=== PATIENT | female | born 1935 | race Caucasian/White ===

== ENCOUNTER → 2016-09-15 | Outpatient (CLI) | payer OTHER ==
[~2016-09-15] MED LIST: ALBUTEROL SULF 2.5 MG/0.5ML(0.5%) NEB SOLN ONE; LEVO100T8 PO; METF-312 PO; OME40GT PO; RANI300C7 PO; SIMV80TA73 PO
== END | disposition home or self-care (01) ==
LOC: RT 08:28
PROVIDERS: ATTEND Internal Medicine
DX: J44.9 Chronic obstructive pulmonary disease, unspecified (principal)
CPT/HCPCS: 94060

== ENCOUNTER → 2016-12-15 | Outpatient (CLI) | payer OTHER ==
[~2016-12-15] MED LIST changes: -ALBUTEROL SULF 2.5 MG/0.5ML(0.5%) NEB SOLN ONE; -METF-312 PO; +METF-370 PO
== END | disposition home or self-care (01) ==
LOC: XYW 09:38
PROVIDERS: ATTEND Internal Medicine
DX: I08.0 Rheumatic disorders of both mitral and aortic valves (principal); R06.00 Dyspnea, unspecified
CPT/HCPCS: 93306

== ENCOUNTER → 2016-12-24 | Outpatient (CLI) | payer OTHER ==
[2016-12-24 08:01] LABS: Aspartate Aminotransferase 18 U/L (15-37); Cholesterol 144 mg/dL (< 200); HDL Cholesterol 80 mg/dL (40-59); LDL Cholesterol 61 mg/dL (< 100); Triglycerides 55 mg/dL (< 150)
== END | disposition home or self-care (01) ==
LOC: LAB 06:55
PROVIDERS: ATTEND Internal Medicine
DX: E11.9 Type 2 diabetes mellitus without complications (principal); E03.9 Hypothyroidism, unspecified
CPT/HCPCS: 36415; 80061; 83036; 84450; 84460

== ENCOUNTER → 2016-12-28 | Outpatient (CLI) | payer OTHER | END | disposition home or self-care (01) | LOC: LAB 09:00 | PROVIDERS: ATTEND Physician Assistant | DX: D23.71 Other benign neoplasm of skin of right lower limb, including hip (principal) ==

== ENCOUNTER → 2017-10-19 | Outpatient (CLI) | payer OTHER ==
[2017-10-19 08:38] LABS: Basophils # (auto) 0.1 uL; Basophils % (auto) 1.2 % (0.0-2.0); Eosinophils # (auto) 0.2 uL; Eosinophils % (auto) 3.7 % (0.0-7.0); Hematocrit 35.5 % (36.0-46.0); Hemoglobin 11.7 g/dL (12.2-16.2); Lymphocytes # (auto) 1.3 uL; Lymphocytes % (auto) 24.1 % (10.0-50.0); Mean Corpuscular Hemoglobin 27.1 pg (28.0-32.0); Mean Corpuscular Volume 82.2 fL (80.0-100.0); Monocytes # (auto) 0.6 uL; Monocytes % (auto) 11.5 % (0.0-12.0); Neutrophils # (auto) 3.1 uL; Neutrophils % (auto) 59.5 % (37.0-80.0); Nucleated Red Blood Cells % 0.1 %; Platelet Count (auto) 292 10^3/uL (140-450); Red Blood Cells 4.32 10^6/uL (4.0-5.20); Red Cell Distribution Width 14.2 % (11.8-14.3); White Blood Cell 5.2 10^3/uL (4.4-10.8)
[2017-10-19 09:01] LABS: Albumin 3.3 g/dL (3.4-5.0); BUN/Creatinine Ratio 17.4; Calcium 8.7 mg/dL (8.5-10.1); Potassium 3.9 mmol/L (3.5-5.1); Urine Bacteria MANY /hpf (None Seen); Urine Blood 1+ /uL (Negative); Urine Specific Gravity 1.016 (1.001-1.035); Urine WBC 65 /hpf (0 - 5); Urine WBC Clumps PRESENT /hpf (None Seen)
[2017-10-19 09:05] LABS: Bilirubin, Total 0.4 mg/dL (0.2-1.0); Total Protein 6.9 g/dL (6.4-8.2)
[2017-10-19 09:10] LABS: Free T4 (Free Thyroxine) 1.5 ng/dL (0.89-1.76)
== END | disposition home or self-care (01) ==
LOC: LAB 08:18
PROVIDERS: ATTEND Internal Medicine Cardiovascular Disease
DX: E11.21 Type 2 diabetes mellitus with diabetic nephropathy (principal); E03.9 Hypothyroidism, unspecified; E11.22 Type 2 diabetes mellitus with diabetic chronic kidney disease; I12.9 Hypertensive chronic kidney disease with stage 1 through stage 4 chronic kidney disease, or unspecified chronic kidney disease; N18.3 Chronic kidney disease, stage 3 (moderate); J44.9 Chronic obstructive pulmonary disease, unspecified; E78.00 Pure hypercholesterolemia, unspecified
CPT/HCPCS: 36415; 80053; 81001; 82043; 82607; 83036; 84439; 84443; 85025

== ENCOUNTER → 2017-11-09 | Outpatient (CLI) | payer OTHER | END | disposition home or self-care (01) | LOC: XYW 08:29 | PROVIDERS: ATTEND Internal Medicine Cardiovascular Disease | DX: R07.89 Other chest pain (principal); I12.9 Hypertensive chronic kidney disease with stage 1 through stage 4 chronic kidney disease, or unspecified chronic kidney disease; E11.22 Type 2 diabetes mellitus with diabetic chronic kidney disease; N18.3 Chronic kidney disease, stage 3 (moderate); J44.9 Chronic obstructive pulmonary disease, unspecified; E03.9 Hypothyroidism, unspecified; E78.00 Pure hypercholesterolemia, unspecified | CPT/HCPCS: 93306 ==

== ENCOUNTER → 2017-11-16 | Outpatient (CLI) | payer OTHER ==
[2017-11-16 11:38] VITALS: BP 172/72
== END | disposition home or self-care (01) ==
LOC: XY 09:35
PROVIDERS: ATTEND Internal Medicine
DX: R07.89 Other chest pain (principal); I12.9 Hypertensive chronic kidney disease with stage 1 through stage 4 chronic kidney disease, or unspecified chronic kidney disease; E11.22 Type 2 diabetes mellitus with diabetic chronic kidney disease; N18.3 Chronic kidney disease, stage 3 (moderate); E03.9 Hypothyroidism, unspecified; E78.00 Pure hypercholesterolemia, unspecified; J44.9 Chronic obstructive pulmonary disease, unspecified
CPT/HCPCS: 93017

== ENCOUNTER → 2017-11-25 | Outpatient (CLI) | payer OTHER | END | disposition home or self-care (01) | LOC: LAB 09:16 | PROVIDERS: ATTEND Internal Medicine | DX: J44.9 Chronic obstructive pulmonary disease, unspecified (principal); E11.22 Type 2 diabetes mellitus with diabetic chronic kidney disease; I12.9 Hypertensive chronic kidney disease with stage 1 through stage 4 chronic kidney disease, or unspecified chronic kidney disease; N18.3 Chronic kidney disease, stage 3 (moderate); E03.9 Hypothyroidism, unspecified; D63.1 Anemia in chronic kidney disease | CPT/HCPCS: 82270 ==

== ENCOUNTER → 2017-11-30 | Outpatient (CLI) | payer OTHER ==
[2017-11-30 15:05] LABS: Basophils # (auto) 0.1 uL; Eosinophils # (auto) 0.2 uL; Nucleated Red Blood Cells % 0.1 %; Red Cell Distribution Width 14.2 % (11.8-14.3)
[2017-11-30 15:07] LABS: Basophils % (auto) 1.3 % (0.0-2.0); Eosinophils % (auto) 2.5 % (0.0-7.0); Hematocrit 37.7 % (36.0-46.0); Hemoglobin 12.4 g/dL (12.2-16.2); Lymphocytes # (auto) 2.3 uL; Lymphocytes % (auto) 25.3 % (10.0-50.0); Mean Corpuscular Hemoglobin 27.1 pg (28.0-32.0); Mean Corpuscular Hgb Conc. 32.9 g/dL (32.0-36.0); Mean Corpuscular Volume 82.6 fL (80.0-100.0); Monocytes # (auto) 0.9 uL; Monocytes % (auto) 9.9 % (0.0-12.0); Neutrophils # (auto) 5.6 uL; Platelet Count (auto) 375 10^3/uL (140-450); Red Blood Cells 4.56 10^6/uL (4.0-5.20); White Blood Cell 9.1 10^3/uL (4.4-10.8)
== END | disposition home or self-care (01) ==
LOC: LAB 14:32
PROVIDERS: ATTEND Internal Medicine
DX: I12.9 Hypertensive chronic kidney disease with stage 1 through stage 4 chronic kidney disease, or unspecified chronic kidney disease (principal); E11.22 Type 2 diabetes mellitus with diabetic chronic kidney disease; E11.21 Type 2 diabetes mellitus with diabetic nephropathy; N18.3 Chronic kidney disease, stage 3 (moderate); E78.00 Pure hypercholesterolemia, unspecified; E03.9 Hypothyroidism, unspecified; J44.9 Chronic obstructive pulmonary disease, unspecified; D63.1 Anemia in chronic kidney disease
CPT/HCPCS: 36415; 83540; 85025

== ENCOUNTER → 2018-07-08 | Outpatient (CLI) | payer OTHER ==
[2018-07-08 08:34] LABS: Basophils # (auto) 0.1 uL; Eosinophils # (auto) 0.3 uL; Eosinophils % (auto) 3.3 % (0.0-7.0); Hematocrit 42.9 % (36.0-46.0); Hemoglobin 13.9 g/dL (12.2-16.2); Lymphocytes # (auto) 1.1 uL; Lymphocytes % (auto) 11.8 % (10.0-50.0); Mean Corpuscular Hemoglobin 28.4 pg (28.0-32.0); Mean Corpuscular Hgb Conc. 32.4 g/dL (32.0-36.0); Mean Corpuscular Volume 87.5 fL (80.0-100.0); Monocytes # (auto) 0.8 uL; Monocytes % (auto) 8.4 % (0.0-12.0); Neutrophils % (auto) 75.5 % (37.0-80.0); Platelet Count (auto) 376 10^3/uL (140-450); White Blood Cell 9.2 10^3/uL (4.4-10.8)
[2018-07-08 09:17] LABS: Albumin 3.5 g/dL (3.4-5.0); Anion Gap 7 (5-15); Blood Urea Nitrogen 18 mg/dL (7-18); Calcium 9.1 mg/dL (8.5-10.1); Carbon Dioxide 26 mmol/L (21-32); Chloride 105 mmol/L (98-107); Glucose 157 mg/dL (74-106); Potassium 3.9 mmol/L (3.5-5.1); Sodium 138 mmol/L (136-145)
[2018-07-08 09:22] LABS: Alanine Aminotransferase 16 U/L (13-56); Alkaline Phosphatase 96 U/L (45-117); Aspartate Aminotransferase 16 U/L (15-37); BUN/Creatinine Ratio 17.5; Bilirubin, Total 0.6 mg/dL (0.2-1.0); Cholesterol 149 mg/dL (< 200); GFR Non-African American 55 mL/min; HDL Cholesterol 69 mg/dL (40-59); LDL Cholesterol 95 mg/dL (< 100); Total Protein 7.8 g/dL (6.4-8.2); Triglycerides 77 mg/dL (< 150)
[2018-07-08 09:23] LABS: GFR African American > 60 mL/min
== END | disposition home or self-care (01) ==
LOC: LAB 08:00
PROVIDERS: ATTEND Internal Medicine
DX: E11.9 Type 2 diabetes mellitus without complications (principal); E78.5 Hyperlipidemia, unspecified
CPT/HCPCS: 36415; 80053; 80061; 83036; 83540; 85025

== ENCOUNTER → 2018-11-22 | Outpatient (CLI) | payer OTHER ==
[2018-11-22 12:33] LABS: Basophils # (auto) 0 uL; Basophils % (auto) 0.4 % (0.0-2.0); Eosinophils # (auto) 0.3 uL; Eosinophils % (auto) 2.9 % (0.0-7.0); Hematocrit 37.9 % (36.0-46.0); Hemoglobin 12.4 g/dL (12.2-16.2); Lymphocytes # (auto) 1.5 uL; Lymphocytes % (auto) 15.6 % (10.0-50.0); Mean Corpuscular Hemoglobin 27.4 pg (28.0-32.0); Mean Corpuscular Hgb Conc. 32.7 g/dL (32.0-36.0); Mean Corpuscular Volume 83.9 fL (80.0-100.0); Neutrophils # (auto) 6.9 uL; Neutrophils % (auto) 71.1 % (37.0-80.0); Nucleated Red Blood Cells % 0.1 %; Platelet Count (auto) 391 10^3/uL (140-450); Red Blood Cells 4.51 10^6/uL (4.0-5.20); Red Cell Distribution Width 13.8 % (11.8-14.3); White Blood Cell 9.7 10^3/uL (4.4-10.8)
[2018-11-22 13:01] LABS: Potassium 4.3 mmol/L (3.5-5.1)
[2018-11-22 13:10] LABS: Albumin 3.4 g/dL (3.4-5.0); BUN/Creatinine Ratio 22.3; Bilirubin, Total 0.3 mg/dL (0.2-1.0); Calcium 9.2 mg/dL (8.5-10.1); Total Protein 7.5 g/dL (6.4-8.2)
== END | disposition home or self-care (01) ==
LOC: LAB 11:53
PROVIDERS: ATTEND Internal Medicine
DX: E11.22 Type 2 diabetes mellitus with diabetic chronic kidney disease (principal); N18.3 Chronic kidney disease, stage 3 (moderate)
CPT/HCPCS: 36415; 80053; 83036; 84439; 84443; 85025

== ENCOUNTER → 2019-07-14 | Outpatient (CLI) | payer OTHER ==
[2019-07-14 09:08] LABS: Basophils # (auto) 0.1 uL; Eosinophils # (auto) 0.3 uL; Hemoglobin 11.6 g/dL (12.2-16.2); Monocytes # (auto) 0.8 uL; Neutrophils # (auto) 6.9 uL; Red Cell Distribution Width 15.6 % (11.8-14.3)
[2019-07-14 09:13] LABS: Eosinophils % (auto) 3.1 % (0.0-7.0); Hematocrit 35.9 % (36.0-46.0); Lymphocytes # (auto) 1.2 uL; Lymphocytes % (auto) 13.3 % (10.0-50.0); Mean Corpuscular Hemoglobin 25.4 pg (28.0-32.0); Mean Corpuscular Hgb Conc. 32.4 g/dL (32.0-36.0); Mean Corpuscular Volume 78.4 fL (80.0-100.0); Monocytes % (auto) 8.5 % (0.0-12.0); Neutrophils % (auto) 74.1 % (37.0-80.0); Platelet Count (auto) 418 10^3/uL (140-450); Red Blood Cells 4.58 10^6/uL (4.0-5.20); White Blood Cell 9.3 10^3/uL (4.4-10.8)
[2019-07-14 09:19] LABS: Urine Bacteria MOD /hpf (None Seen); Urine Blood Negative /uL (Negative); Urine Mucus FEW (None Seen); Urine Specific Gravity 1.021 (1.001-1.035); Urine WBC 87 /hpf (0 - 5)
[2019-07-14 09:51] LABS: Free T4 (Free Thyroxine) 1.22 ng/dL (0.89-1.76)
[2019-07-14 09:57] LABS: Potassium 4.3 mmol/L (3.5-5.1)
[2019-07-14 10:07] LABS: Albumin 3.2 g/dL (3.4-5.0); BUN/Creatinine Ratio 18.3; Bilirubin, Total 0.4 mg/dL (0.2-1.0); Calcium 9.4 mg/dL (8.5-10.1); Total Protein 7.6 g/dL (6.4-8.2)
== END | disposition home or self-care (01) ==
LOC: LAB 08:46
PROVIDERS: ATTEND Internal Medicine
DX: E11.21 Type 2 diabetes mellitus with diabetic nephropathy (principal); E03.9 Hypothyroidism, unspecified
CPT/HCPCS: 36415; 80053; 80061; 81001; 82043; 82607; 83036; 84439; 84443; 85025; 85652

== ENCOUNTER → 2019-07-24 | Outpatient (CLI) | payer OTHER | END | disposition home or self-care (01) | LOC: LAB 11:39 | PROVIDERS: ATTEND Internal Medicine | DX: D64.9 Anemia, unspecified (principal) | CPT/HCPCS: 82270 ==

== ENCOUNTER → 2019-11-21 | Outpatient (CLI) | payer OTHER ==
[2019-11-21 15:52] LABS: Basophils # (auto) 0 10 ^3/uL (0-0.2); Eosinophils # (auto) 0.5 10 ^3/uL (0-0.8); Lymphocytes # (auto) 1.6 10 ^3/uL (0.4-5.4); Mean Corpuscular Hgb Conc. 30.9 g/dL (32.0-36.0)
[2019-11-21 15:54] LABS: Basophils % (auto) 0.2 % (0.0-2.0); Eosinophils % (auto) 4.1 % (0.0-7.0); Hematocrit 33.3 % (36.0-46.0); Hemoglobin 10.3 g/dL (12.2-16.2); Lymphocytes % (auto) 12.4 % (10.0-50.0); Mean Corpuscular Hemoglobin 22.1 pg (28.0-32.0); Mean Corpuscular Volume 71.5 fL (80.0-100.0); Monocytes % (auto) 7.3 % (0.0-12.0); Neutrophils # (auto) 10.1 10 ^3/uL (1.6-8.6); Nucleated Red Blood Cells % 0.1 %; Platelet Count (auto) 569 10^3/uL (140-450); Red Blood Cells 4.65 10^6/uL (4.0-5.20); Red Cell Distribution Width 16.5 % (11.8-14.3); Urine Bacteria MANY /hpf (None Seen); Urine Blood Negative /uL (Negative); Urine Mucus FEW (None Seen); Urine Specific Gravity 1.018 (1.001-1.035); Urine WBC 43 /hpf (0 - 5); White Blood Cell 13.2 10^3/uL (4.4-10.8)
[2019-11-21 16:07] LABS: Albumin 3.1 g/dL (3.4-5.0); BUN/Creatinine Ratio 20.5; Calcium 9.3 mg/dL (8.5-10.1); Potassium 4.2 mmol/L (3.5-5.1)
[2019-11-21 16:10] LABS: Bilirubin, Total 0.3 mg/dL (0.2-1.0); Total Protein 7.9 g/dL (6.4-8.2)
== END | disposition home or self-care (01) ==
LOC: LAB 15:22
PROVIDERS: ATTEND Internal Medicine
DX: R06.00 Dyspnea, unspecified (principal)
CPT/HCPCS: 36415; 80053; 81001; 83880; 84439; 84443; 85025; 85379; 85652

== ENCOUNTER → 2019-11-24 | Outpatient (CLI) | payer OTHER ==
[2019-11-24 12:05] LABS: Basophils # (auto) 0.1 10 ^3/uL (0-0.2); Eosinophils # (auto) 0.4 10 ^3/uL (0-0.8); Lymphocytes # (auto) 1.1 10 ^3/uL (0.4-5.4); Red Cell Distribution Width 16.7 % (11.8-14.3)
[2019-11-24 12:09] LABS: Basophils % (auto) 0.6 % (0.0-2.0); Eosinophils % (auto) 3.6 % (0.0-7.0); Hematocrit 33.8 % (36.0-46.0); Hemoglobin 10.7 g/dL (12.2-16.2); Lymphocytes % (auto) 10.3 % (10.0-50.0); Mean Corpuscular Hemoglobin 22.6 pg (28.0-32.0); Mean Corpuscular Hgb Conc. 31.5 g/dL (32.0-36.0); Mean Corpuscular Volume 71.6 fL (80.0-100.0); Monocytes % (auto) 9.3 % (0.0-12.0); Neutrophils # (auto) 8.3 10 ^3/uL (1.6-8.6); Neutrophils % (auto) 76.2 % (37.0-80.0); Platelet Count (auto) 569 10^3/uL (140-450); Red Blood Cells 4.72 10^6/uL (4.0-5.20); White Blood Cell 10.9 10^3/uL (4.4-10.8)
== END | disposition home or self-care (01) ==
LOC: LAB 11:47
PROVIDERS: ATTEND Internal Medicine
DX: D64.9 Anemia, unspecified (principal); N39.0 Urinary tract infection, site not specified
CPT/HCPCS: 36415; 82607; 83540; 83615; 85025

== ENCOUNTER → 2020-01-04 | Outpatient (CLI) | payer OTHER ==
[2020-01-04 13:30] LABS: Basophils # (auto) 0.1 10 ^3/uL (0-0.2); Eosinophils # (auto) 0.2 10 ^3/uL (0-0.8); Eosinophils % (auto) 2.6 % (0.0-7.0); Lymphocytes # (auto) 1.2 10 ^3/uL (0.4-5.4); Monocytes # (auto) 0.8 10 ^3/uL (0-1.3)
[2020-01-04 13:32] LABS: Basophils % (auto) 0.8 % (0.0-2.0); Hematocrit 33.5 % (36.0-46.0); Hemoglobin 10.3 g/dL (12.2-16.2); Lymphocytes % (auto) 13.5 % (10.0-50.0); Mean Corpuscular Hemoglobin 22.1 pg (28.0-32.0); Mean Corpuscular Hgb Conc. 30.8 g/dL (32.0-36.0); Mean Corpuscular Volume 71.7 fL (80.0-100.0); Monocytes % (auto) 9.5 % (0.0-12.0); Neutrophils # (auto) 6.5 10 ^3/uL (1.6-8.6); Neutrophils % (auto) 73.6 % (37.0-80.0); Platelet Count (auto) 495 10^3/uL (140-450); Red Blood Cells 4.68 10^6/uL (4.0-5.20); Red Cell Distribution Width 19.1 % (11.8-14.3); White Blood Cell 8.9 10^3/uL (4.4-10.8)
[2020-01-04 13:33] LABS: Urine Bacteria FEW /hpf (None Seen); Urine Blood Negative /uL (Negative); Urine Specific Gravity 1.011 (1.001-1.035); Urine WBC 19 /hpf (0 - 5)
== END | disposition home or self-care (01) ==
LOC: LAB 13:06
PROVIDERS: ATTEND Internal Medicine
DX: E11.9 Type 2 diabetes mellitus without complications (principal); D64.9 Anemia, unspecified
CPT/HCPCS: 36415; 81001; 83036; 83540; 83615; 85025

== ENCOUNTER → 2020-04-05 | Day surgery (SDC) | payer OTHER ==
[2020-04-01 10:09] LABS: Basophils # (auto) 0.1 10 ^3/uL (0-0.2); Basophils % (auto) 1.4 % (0.0-2.0); Eosinophils # (auto) 0.2 10 ^3/uL (0-0.8); Eosinophils % (auto) 1.6 % (0.0-7.0); Hematocrit 34.2 % (36.0-46.0); Hemoglobin 10.7 g/dL (12.2-16.2); Lymphocytes # (auto) 1.2 10 ^3/uL (0.4-5.4); Lymphocytes % (auto) 12.8 % (10.0-50.0); Mean Corpuscular Hemoglobin 22.8 pg (28.0-32.0); Mean Corpuscular Hgb Conc. 31.3 g/dL (32.0-36.0); Mean Corpuscular Volume 72.8 fL (80.0-100.0); Monocytes # (auto) 0.8 10 ^3/uL (0-1.3); Monocytes % (auto) 7.8 % (0.0-12.0); Neutrophils # (auto) 7.4 10 ^3/uL (1.6-8.6); Neutrophils % (auto) 76.4 % (37.0-80.0); Nucleated Red Blood Cells % 0.1 %; Platelet Count (auto) 454 10^3/uL (140-450); Red Cell Distribution Width 18.2 % (11.8-14.3); White Blood Cell 9.7 10^3/uL (4.4-10.8)
[2020-04-01 10:12] LABS: INR 1.14 (0.9-1.15); Partial Thromboplastin Time 33.5 sec (23.0-31.2)
[~2020-04-05] VITALS: Ht 172.7 cm; Wt 61.7 kg
[~2020-04-05] MED LIST changes: -LEVO100T8 PO; +LEVO75TA6 PO; +LIDOCAINE VISCOUS 2% 15ML UD ONE; -RANI300C7 PO; -SIMV80TA73 PO; +SODIUM CHLORIDE LOCK 10 ML ONE; +diphenhdrAMINE HCL 50 MG/1 ML VL ONE
[2020-04-05] MEDS: fentaNYL CITRATE 100 MCG/2 ML VL ONE ×4 (12:35→12:45)
[2020-04-05] MEDS: MIDAZOLAM HCL 5 MG/ML-1ML VIAL ONE ×3 (12:35→12:40)
[2020-04-05 14:00] VITALS: BP 149/77
== END | disposition home or self-care (01) ==
LOC: GI 10:51
PROVIDERS: ATTEND Internal Medicine Gastroenterology
DX: D64.9 Anemia, unspecified (principal); K29.50 Unspecified chronic gastritis without bleeding; K44.9 Diaphragmatic hernia without obstruction or gangrene; K31.7 Polyp of stomach and duodenum; J44.9 Chronic obstructive pulmonary disease, unspecified; E78.00 Pure hypercholesterolemia, unspecified; E11.9 Type 2 diabetes mellitus without complications; F17.200 Nicotine dependence, unspecified, uncomplicated; Z88.1 Allergy status to other antibiotic agents; N83.209 Unspecified ovarian cyst, unspecified side; Z90.49 Acquired absence of other specified parts of digestive tract; Z20.828 Contact with and (suspected) exposure to other viral communicable diseases; Z79.899 Other long term (current) drug therapy; Z98.890 Other specified postprocedural states
CPT/HCPCS: 36415; 43239; 43251; 82962; 85025; 85610; 85730; 88305; 88342; J2250; J3010; J7030; U0003; 99152

== ENCOUNTER → 2020-04-19 | Day surgery (SDC) | payer OTHER ==
[2020-04-15 11:54] LABS: Basophils # (auto) 0.1 10 ^3/uL (0-0.2); Eosinophils # (auto) 0.2 10 ^3/uL (0-0.8); Hemoglobin 10.8 g/dL (12.2-16.2)
[2020-04-15 11:56] LABS: Basophils % (auto) 0.7 % (0.0-2.0); Eosinophils % (auto) 1.9 % (0.0-7.0); Hematocrit 34.3 % (36.0-46.0); Lymphocytes # (auto) 1.3 10 ^3/uL (0.4-5.4); Lymphocytes % (auto) 13.3 % (10.0-50.0); Mean Corpuscular Hemoglobin 22.9 pg (28.0-32.0); Mean Corpuscular Hgb Conc. 31.4 g/dL (32.0-36.0); Mean Corpuscular Volume 72.8 fL (80.0-100.0); Monocytes # (auto) 0.9 10 ^3/uL (0-1.3); Neutrophils # (auto) 7.6 10 ^3/uL (1.6-8.6); Neutrophils % (auto) 75.1 % (37.0-80.0); Nucleated Red Blood Cells % 0.1 %; Platelet Count (auto) 494 10^3/uL (140-450); Red Blood Cells 4.71 10^6/uL (4.0-5.20); Red Cell Distribution Width 18.2 % (11.8-14.3); White Blood Cell 10.1 10^3/uL (4.4-10.8)
[2020-04-15 12:07] LABS: INR 1.14 (0.9-1.15); Partial Thromboplastin Time 33.5 sec (23.0-31.2)
[~2020-04-19] VITALS: Ht 172.7 cm; Wt 61.7 kg
[~2020-04-19] MED LIST changes: +ATOR20TA50 PO; -LIDOCAINE VISCOUS 2% 15ML UD ONE; -OME40GT PO; +OMEP20TA PO
[2020-04-19] MEDS: MIDAZOLAM HCL 5 MG/ML-1ML VIAL ONE ×3 (12:57→13:05)
[2020-04-19] MEDS: fentaNYL CITRATE 100 MCG/2 ML VL ONE ×3 (12:57→13:04)
[2020-04-19 13:55] VITALS: BP 142/76
== END | disposition home or self-care (01) ==
LOC: GI 11:52
PROVIDERS: ATTEND Internal Medicine Gastroenterology
DX: D64.9 Anemia, unspecified (principal); C18.3 Malignant neoplasm of hepatic flexure; D12.7 Benign neoplasm of rectosigmoid junction; K57.30 Diverticulosis of large intestine without perforation or abscess without bleeding; K64.8 Other hemorrhoids; Z90.49 Acquired absence of other specified parts of digestive tract; E78.00 Pure hypercholesterolemia, unspecified; E11.9 Type 2 diabetes mellitus without complications; J44.9 Chronic obstructive pulmonary disease, unspecified; E11.36 Type 2 diabetes mellitus with diabetic cataract; Z88.1 Allergy status to other antibiotic agents; N83.292 Other ovarian cyst, left side; Z98.890 Other specified postprocedural states; Z20.828 Contact with and (suspected) exposure to other viral communicable diseases; Z79.899 Other long term (current) drug therapy; Z87.891 Personal history of nicotine dependence
CPT/HCPCS: 36415; 45380; 45385; 82962; 85025; 85610; 85730; 88305; J1200; J2250; J3010; J7030; U0003; 99152

== ENCOUNTER → 2020-05-07 | Outpatient (CLI) | payer OTHER ==
[~2020-05-07] MED LIST changes: -SODIUM CHLORIDE LOCK 10 ML ONE; -diphenhdrAMINE HCL 50 MG/1 ML VL ONE
== END | disposition home or self-care (01) ==
LOC: LAB 12:17
PROVIDERS: ATTEND Internal Medicine
DX: C18.9 Malignant neoplasm of colon, unspecified (principal)
CPT/HCPCS: 36415; 82565; 84520

== ENCOUNTER 2020-05-22 06:23 | Inpatient (IN) | payer OTHER ==
[2020-05-20 16:29] LABS: Urine Bacteria MOD /hpf (None Seen); Urine Blood TRACE /uL (Negative); Urine Mucus FEW (None Seen); Urine Specific Gravity 1.019 (1.001-1.035); Urine WBC 90 /hpf (0 - 5)
[2020-05-20 16:36] LABS: INR 1.17 (0.9-1.15); Partial Thromboplastin Time 35.3 sec (23.0-31.2)
[2020-05-20 16:38] LABS: Albumin 3.6 g/dL (3.4-5.0); BUN/Creatinine Ratio 11.5; Potassium 3.6 mmol/L (3.5-5.1)
[2020-05-20 16:41] LABS: Bilirubin, Total 0.5 mg/dL (0.2-1.0); Total Protein 8.3 g/dL (6.4-8.2)
[2020-05-20 16:45] LABS: Basophils # (auto) 0.1 10 ^3/uL (0-0.2); Eosinophils # (auto) 0.2 10 ^3/uL (0-0.8); Eosinophils % (auto) 2.1 % (0.0-7.0); Hematocrit 36.6 % (36.0-46.0); Hemoglobin 11.4 g/dL (12.2-16.2); Lymphocytes # (auto) 1.6 10 ^3/uL (0.4-5.4); Lymphocytes % (auto) 15.8 % (10.0-50.0); Mean Corpuscular Hemoglobin 23.3 pg (28.0-32.0); Mean Corpuscular Hgb Conc. 31.2 g/dL (32.0-36.0); Mean Corpuscular Volume 74.8 fL (80.0-100.0); Monocytes # (auto) 0.8 10 ^3/uL (0-1.3); Monocytes % (auto) 8.4 % (0.0-12.0); Neutrophils # (auto) 7.3 10 ^3/uL (1.6-8.6); Neutrophils % (auto) 72.7 % (37.0-80.0); Nucleated Red Blood Cells % 0.1 %; Platelet Count (auto) 487 10^3/uL (140-450); Red Cell Distribution Width 17.3 % (11.8-14.3); White Blood Cell 10.1 10^3/uL (4.4-10.8)
[~2020-05-22] VITALS: Ht 172.7 cm; Wt 66.1 kg
[2020-05-22] MEDS ORDERED: POVIDONE IODINE 10 % TOPICAL OINT 30GM TOP ONE (06:52)
[2020-05-22] MEDS ORDERED: LIDOCAINE 1% HCL (LOCAL ANESTH.) INJ 20ML MDV ONE (07:11)
[2020-05-22] MEDS ORDERED: ROCURONIUM 10MG/ML 10ML VIAL IV ONE ×2 (07:11→07:19)
[2020-05-22] MEDS ORDERED: SUCCINYLCHOLINE CHLORIDE 20 MG/ML 10ML VIAL IV ONE (07:11)
[2020-05-22] MEDS ORDERED: ONDANSETRON HCL 4 MG/2 ML VIAL ONE (07:19)
[2020-05-22] MEDS ORDERED: fentaNYL CITRATE 5 ML ONE (07:19)
[2020-05-22] MEDS ORDERED: HYDROmorphone HCL 2 MG/ML VL ONE (07:19)
[2020-05-22] MEDS ORDERED: MIDAZOLAM HCL 1MG/1ML-2 ML VIAL ONE (07:19)
[2020-05-22] MEDS ORDERED: fentaNYL CITRATE 100 MCG/2 ML VL ONE (07:19)
[2020-05-22] MEDS ORDERED: ETOMIDATE (2MG/ML) 20ML VIAL IV ONE (07:19)
[2020-05-22] MEDS ORDERED: SODIUM CHLORIDE LOCK 10 ML ONE (07:19)
[2020-05-22] MEDS ORDERED: cefTRIAXone SOD 1,000 MG VL ONE (07:22)
[2020-05-22] MEDS ORDERED: HYDROmorphone HCL 2 MG/ML VL IV PRN ×3 (07:45→13:45)
[2020-05-22] MEDS ORDERED: ACCU-CHEK COMFORT CURVE STRIP VI ONE (07:45)
[2020-05-22] MEDS ORDERED: MORPHINE SULFATE 4 MG/ML SYR/VIAL IV PRN (07:45)
[2020-05-22] MEDS ORDERED: ONDANSETRON HCL 4 MG/2 ML VIAL IV PRN (07:45)
[2020-05-22] MEDS ORDERED: GLYCOPYRROLATE 0.2 MG/ML 1ML VIAL ONE (08:43)
[2020-05-22] MEDS ORDERED: NEOSTIGMINE 1 MG/ML INJ (10mg/10ML VIAL) ONE (08:43)
[2020-05-22] MEDS ORDERED: MORPHINE SULFATE 4 MG/ML SYR/VIAL IV ONE (10:30)
[2020-05-22] MEDS ORDERED: ONDANSETRON HCL 4 MG/2 ML VIAL IV ONE (10:30)
[2020-05-22] MEDS ORDERED: D5W/SOD CHL 0.45%/KCL 20MEQ 1,000 ML IV SCH (11:00)
--- NOTE | 2020-05-22 11:12 | NUR ---
Report received from Harrison HAQUE in OR. Will await patient arrival.
--- NOTE | 2020-05-22 11:28 | NUR ---
Telemetry admit from [facility] admitted to Telemetry unit after SBAR received. She is A & O x4, no s/s of distress, patient does have some belly pain stating 12/28, patient still very drowsy at this time, will medicate per orders. Patient oriented to Anca Chavez, primary RN, unit, room, bed, and unit policies regarding patient care and visiting hours. Patient on room air, weighed by bedscale and encouraged to call if they need something. All questions and concerns addressed, patient verbalized understanding. SUSAN drain draining sanguinous blood from the right lower quadrant, 25 ml out at this time, scanlon catheter draining yellow urine, NG tube placed to LCS as ordered. POC discussed, will continue to monitor Q1h and PRN, bed alarm on, bed in lowest, locked position, call light within reach. Addendum: 05/22/20 at 1610 by Anca Chavez RN Midline abdominal dressing is clean, dry and intact.
--- NOTE | 2020-05-22 12:30 | NUR ---
Patient placed on tele box 66 NSR at 83, will continue to monitor.
[2020-05-22 12:36] VITALS: BP 135/59
[2020-05-22 13:02] VITALS: BP 135/59
[2020-05-22] MEDS ORDERED: cefTRIAXone 1GM/50ML D5W 50 ML IV ONE (13:45)
[2020-05-22] MEDS: D5W/SOD CHL 0.45%/KCL 20MEQ 1,000 ML IV SCH (13:45)
[2020-05-22] MEDS ORDERED: DEXTROSE (50%) 50ML SYRG IV PRN (13:45)
[2020-05-22] MEDS ORDERED: FAMOTIDINE (10MG/ML) 2ML VL IV ONE (13:45)
[2020-05-22] MEDS: ONDANSETRON HCL 4 MG/2 ML VIAL IV PRN (15:27)
[2020-05-22 16:36] VITALS: BP 146/66
[2020-05-22] MEDS: InsuLIN REG 1unit/0.01ml Soln (100units/ml) SC SCH (18:00)
--- NOTE | 2020-05-22 18:00 | NUR ---
SUSAN drain 50 ml sanguinous fluid output for shift.
[2020-05-22] MEDS: ACCU-CHEK COMFORT CURVE STRIP VI SCH (18:01)
[2020-05-22 21:36] VITALS: BP 156/73
[2020-05-23] MEDS: InsuLIN REG 1unit/0.01ml Soln (100units/ml) SC SCH ×4 (00:13→17:19)
[2020-05-23] MEDS: ACCU-CHEK COMFORT CURVE STRIP VI SCH ×4 (00:13→17:18)
[2020-05-23] MEDS: D5W/SOD CHL 0.45%/KCL 20MEQ 1,000 ML IV SCH ×4 (02:25→21:25)
[2020-05-23] MEDS: ONDANSETRON HCL 4 MG/2 ML VIAL IV PRN (02:25)
--- NOTE | 2020-05-23 03:00 | NUR ---
PT TURNED Q2 DURING NOC SHIFT. TOLERATED WELL. WANTS NGTUBE OUT. CALL LIGHT IN REACH.
[2020-05-23 05:00] VITALS: BP 137/68
[2020-05-23 05:57] LABS: Basophils # (auto) 0.1 10 ^3/uL (0-0.2); Eosinophils # (auto) 0 10 ^3/uL (0-0.8)
[2020-05-23 06:01] LABS: Basophils % (auto) 0.3 % (0.0-2.0); Hematocrit 32.8 % (36.0-46.0); Lymphocytes # (auto) 1.1 10 ^3/uL (0.4-5.4); Mean Corpuscular Hemoglobin 22.9 pg (28.0-32.0); Mean Corpuscular Hgb Conc. 30.5 g/dL (32.0-36.0); Mean Corpuscular Volume 74.9 fL (80.0-100.0); Monocytes # (auto) 1.6 10 ^3/uL (0-1.3); Monocytes % (auto) 7.6 % (0.0-12.0); Neutrophils # (auto) 18.5 10 ^3/uL (1.6-8.6); Neutrophils % (auto) 87.1 % (37.0-80.0); Platelet Count (auto) 434 10^3/uL (140-450); Red Blood Cells 4.38 10^6/uL (4.0-5.20); Red Cell Distribution Width 17.4 % (11.8-14.3); White Blood Cell 21.2 10^3/uL (4.4-10.8)
[2020-05-23 06:23] LABS: Potassium 3.5 mmol/L (3.5-5.1)
[2020-05-23 06:38] LABS: Albumin 2.8 g/dL (3.4-5.0); BUN/Creatinine Ratio 9.7; Bilirubin, Total 0.3 mg/dL (0.2-1.0); Calcium 8.7 mg/dL (8.5-10.1); Total Protein 6.6 g/dL (6.4-8.2)
[2020-05-23 08:00] VITALS: BP 141/64
[2020-05-23] MEDS: cefTRIAXone 1GM/50ML D5W 50 ML IV SCH (08:43)
[2020-05-23] MEDS: FAMOTIDINE (10MG/ML) 2ML VL IV SCH (08:44)
[2020-05-23 09:00] VITALS: BP 141/64
[2020-05-23 13:00] VITALS: BP 150/75
--- NOTE | 2020-05-23 16:00 | NUR ---
Patient requested that P.T. evaluation be done tomorrow.
[2020-05-23 16:34] VITALS: BP 153/78
[2020-05-23 22:00] VITALS: BP_SYST 154; BP_SYST 157; BP_DIAS 77; BP_DIAS 82
[2020-05-24] MEDS: ACCU-CHEK COMFORT CURVE STRIP VI SCH ×4 (00:16→18:16)
[2020-05-24] MEDS: ONDANSETRON HCL 4 MG/2 ML VIAL IV PRN (04:16)
[2020-05-24 05:00] VITALS: BP 156/90
[2020-05-24] MEDS: InsuLIN REG 1unit/0.01ml Soln (100units/ml) SC SCH ×4 (05:55→18:00)
--- NOTE | 2020-05-24 05:59 | NUR ---
150 output from mehul 100 output from ng tube for entire shift. patient has been turned/repositioned q2 hours or prn throughout entire shift.
[2020-05-24 07:14] LABS: Eosinophils # (auto) 0 10 ^3/uL (0-0.8); Eosinophils % (auto) 0.3 % (0.0-7.0); Neutrophils # (auto) 11.9 10 ^3/uL (1.6-8.6); White Blood Cell 13.9 10^3/uL (4.4-10.8)
[2020-05-24 07:17] LABS: Basophils # (auto) 0.1 10 ^3/uL (0-0.2); Basophils % (auto) 0.7 % (0.0-2.0); Hematocrit 35.3 % (36.0-46.0); Hemoglobin 10.9 g/dL (12.2-16.2); Lymphocytes # (auto) 0.8 10 ^3/uL (0.4-5.4); Lymphocytes % (auto) 5.9 % (10.0-50.0); Mean Corpuscular Hgb Conc. 30.9 g/dL (32.0-36.0); Mean Corpuscular Volume 74.3 fL (80.0-100.0); Monocytes % (auto) 7.4 % (0.0-12.0); Neutrophils % (auto) 85.7 % (37.0-80.0); Nucleated Red Blood Cells % 0.1 %; Platelet Count (auto) 373 10^3/uL (140-450); Red Blood Cells 4.75 10^6/uL (4.0-5.20); Red Cell Distribution Width 18.2 % (11.8-14.3)
[2020-05-24 08:00] VITALS: BP 158/86
[2020-05-24 09:00] VITALS: BP 158/86
[2020-05-24] MEDS: FAMOTIDINE (10MG/ML) 2ML VL IV SCH (09:36)
[2020-05-24] MEDS: cefTRIAXone 1GM/50ML D5W 50 ML IV SCH (09:36)
--- NOTE | 2020-05-24 12:02 | NUR ---
Nutrition Assessment Note please see attached link for complete assessment Est energy needs BW 68 [id number] kcal (25-30 kcal/kg BW) Est protein needs: 68-81g (1.0-1.2 g/kg BW) Will monitor and reassess prn Addendum: 05/24/20 at [address] Amended: Links added.
[2020-05-24 13:00] VITALS: BP 161/86
--- NOTE | 2020-05-24 17:49 | NUR ---
Assessment Patient is a 84 year old female, who is alert and oriented. Prior to being admitted to [facility], patient could do all ADL's and ambulate independently. Patient is a diabetic. Patient is retired and receives social security as income. Patient lives alone, but her niece will stay with her post discharge. Patient states that her niece is her support system. Patient stated that she has POA but not filed at [facility]. Discharge planning: Patient will return home post discharge, patient will follow up care with PCP post discharge. Patient has all supplies for diabetic care at home. There are no other discharge needs to address at the moment.
[2020-05-24] MEDS: D5W/SOD CHL 0.45%/KCL 20MEQ 1,000 ML IV SCH (19:58)
[2020-05-24 22:00] VITALS: BP 152/80
[2020-05-25] MEDS: ACCU-CHEK COMFORT CURVE STRIP VI SCH ×4 (01:26→17:47)
[2020-05-25 05:00] VITALS: BP 143/83
[2020-05-25] MEDS: InsuLIN REG 1unit/0.01ml Soln (100units/ml) SC SCH ×4 (05:12→17:48)
--- NOTE | 2020-05-25 07:50 | NUR ---
Opening Shift Note Assumed care of patient, awake and alert bed is locked and in lowest position bed rails up x2 call light is within reach . No S/S of distress/SOB or pain. Instructed on POC and to call for assistance PRN, will continue to monitor for changes Q1hr and PRN.
[2020-05-25 08:27] LABS: Potassium 3.7 mmol/L (3.5-5.1)
[2020-05-25 08:30] VITALS: BP 150/86
[2020-05-25 08:31] LABS: BUN/Creatinine Ratio 12.9; Calcium 8.6 mg/dL (8.5-10.1)
[2020-05-25 08:45] LABS: Basophils # (auto) 0.1 10 ^3/uL (0-0.2); Basophils % (auto) 0.5 % (0.0-2.0); Eosinophils # (auto) 0.2 10 ^3/uL (0-0.8); Eosinophils % (auto) 1.6 % (0.0-7.0); Hematocrit 35.9 % (36.0-46.0); Hemoglobin 11.1 g/dL (12.2-16.2); Lymphocytes # (auto) 1.3 10 ^3/uL (0.4-5.4); Lymphocytes % (auto) 11.2 % (10.0-50.0); Mean Corpuscular Hemoglobin 23.2 pg (28.0-32.0); Mean Corpuscular Volume 74.7 fL (80.0-100.0); Monocytes # (auto) 1.2 10 ^3/uL (0-1.3); Monocytes % (auto) 9.9 % (0.0-12.0); Neutrophils % (auto) 76.8 % (37.0-80.0); Nucleated Red Blood Cells % 0.2 %; Platelet Count (auto) 448 10^3/uL (140-450); Red Blood Cells 4.81 10^6/uL (4.0-5.20); White Blood Cell 11.7 10^3/uL (4.4-10.8)
[2020-05-25] MEDS: cefTRIAXone 1GM/50ML D5W 50 ML IV SCH (09:19)
[2020-05-25] MEDS: FAMOTIDINE (10MG/ML) 2ML VL IV SCH (09:48)
[2020-05-25 12:57] VITALS: BP 145/89
[2020-05-25] MEDS: D5W/SOD CHL 0.45%/KCL 20MEQ 1,000 ML IV SCH (13:40)
[2020-05-25 16:30] VITALS: BP 153/98
--- NOTE | 2020-05-25 19:30 | NUR ---
Opening Shift Note Assumed care of patient, awake and alert x4. No S/S of distress/SOB or pain. NGT to LCS, 400 cc are in the NG cannister. Diana is in place and hung below bladder, draining yellow urine. Instructed on POC and to call for assist PRN. Call light is within reach, will continue to monitor for changes Q1hr and PRN.
[2020-05-25 22:00] VITALS: BP 155/75
--- NOTE | 2020-05-26 00:30 | NUR ---
Scanlon catheter dc'd due to leaking. Attempted to reposition and advance catheter, it was unsuccessful, scanlon is still leaking around catheter. Scanlon dc'd with clean technique following deflation of balloon. Patient tolerated well with no complaints of pain. Will attempt to place another scanlon.
--- NOTE | 2020-05-26 01:34 | NUR ---
Attempted to place a scanlon 5x by 4 RNs, unable to place. Patient has no scanlon at this time. Patient repositioned for comfort, instructed to call for assistance, call light is within reach. Addendum: 05/26/20 at 0140 by PK HATCH RN Patient is requesting to hold off on trying again, she states it is uncomfortable and she wants to rest, we can try again in the morning.
[2020-05-26 05:00] VITALS: BP 138/75
[2020-05-26] MEDS: InsuLIN REG 1unit/0.01ml Soln (100units/ml) SC SCH ×5 (05:57→23:58)
[2020-05-26] MEDS: ACCU-CHEK COMFORT CURVE STRIP VI SCH ×5 (05:57→23:57)
[2020-05-26] MEDS: D5W/SOD CHL 0.45%/KCL 20MEQ 1,000 ML IV SCH (06:41)
--- NOTE | 2020-05-26 07:03 | NUR ---
Closing note Total NG tube output 400cc of light green drainage. SUSAN drain 125cc of sanguinous fluid out. NGT remains to LCS. Call light is within reach, will endorse care to dayshift.
[2020-05-26 09:00] VITALS: BP 133/71
[2020-05-26] MEDS: cefTRIAXone 1GM/50ML D5W 50 ML IV SCH (09:11)
[2020-05-26] MEDS: FAMOTIDINE (10MG/ML) 2ML VL IV SCH (09:11)
--- NOTE | 2020-05-26 09:15 | NUR ---
BLANCO CATHETER ATTEMPTED. UNABLE TO OBTAIN PROPER CATHETER PLACEMENT. Jana WEN.
--- NOTE | 2020-05-26 10:56 | NUR ---
Contacted Dr. Radford regarding NGT removal and pt follow up. Message left
--- NOTE | 2020-05-26 12:16 | NUR ---
Nutrition Followup Note Wt 65.3kg Pt was walking around the floor with PT at time of rounds. Per MD note NGT to be d/c and pt diet to adv to clear liquid. Will monitor tolerance of diet and continuing adv of diet. Est energy needs BW 68 [id number] kcal (25-30 kcal/kg BW) Est protein needs: 68-81g (1.0-1.2 g/kg BW) Will monitor and reassess prn Labs: GLUC 138H, Alb 2.8L BM: Pt with no BM noted per Rn note Skin: BS 19 low risk, full details in child care supervisor note PES Altered nutrition related lab values r.t current chronic medical condition aeb hyperglycemia, mod hypoalb Partially resolved: Inadequate PO intake r.t current medical condition aeb pt`s nPO post sx Comments 1) advance diet as medically feasible 2) continue current plan of care Expected Outcomes/Goals: pt will get > 75% of needs pt will advance and nancy po F/u high 2-3 days
[2020-05-26 13:00] VITALS: BP 146/85
--- NOTE | 2020-05-26 13:25 | NUR ---
NGT removed after pt had small BM and pt reports passing flatus. Pt tolerated well. Provided clear liquid lunch tray.
--- NOTE | 2020-05-26 14:30 | NUR ---
Pt transferred to chair with standby assist. Pt tolerated well
[2020-05-26 16:44] VITALS: BP 146/76
--- NOTE | 2020-05-26 19:35 | NUR ---
Opening Shift Note Assumed care of patient, awake and alert x4. No S/S of distress/SOB or pain. Dressing to abdomen is C/D/I, mehul drain is in place to RLQ. Instructed on POC and to call for assist PRN. Call light is within reach, will continue to monitor for changes Q1hr and PRN.
[2020-05-26 21:00] VITALS: BP 154/85
[2020-05-27] MEDS: D5W/SOD CHL 0.45%/KCL 20MEQ 1,000 ML IV SCH (03:49)
[2020-05-27 05:00] VITALS: BP 151/70
[2020-05-27] MEDS: ACCU-CHEK COMFORT CURVE STRIP VI SCH ×3 (06:12→17:15)
[2020-05-27] MEDS: InsuLIN REG 1unit/0.01ml Soln (100units/ml) SC SCH ×3 (06:13→17:14)
--- NOTE | 2020-05-27 06:50 | NUR ---
Closing note SUSAN drain output 55cc of serosanguineous fluid. Call light is within reach, will endorse care to dayshift.
--- NOTE | 2020-05-27 07:11 | NUR ---
Closing note Report given to shift supervisor melting RN. Patient on 3L Oxymizer. No signs of distress noted.
--- NOTE | 2020-05-27 07:30 | NUR ---
Opening Shift Note Assumed care of patient, AOx4. No S/S of distress/SOB or pain. Safety measures in place, bed locked in lowest position, call light within reach. Instructed on POC and to call for assist PRN, will continue to monitor for changes Q1hr and PRN.
--- NOTE | 2020-05-27 08:45 | NUR ---
Patient ambulated to restroom Patient ambulated to restroom with front wheel walker and stand by assistance from this RN. Patient tolerated well, will continue to monitor Q1 hour and PRN.
[2020-05-27] MEDS: cefTRIAXone 1GM/50ML D5W 50 ML IV SCH (09:12)
[2020-05-27] MEDS: FAMOTIDINE (10MG/ML) 2ML VL IV SCH (09:13)
--- NOTE | 2020-05-27 09:50 | NUR ---
Doctor at bedside Dr. Maurice at bedside, updated on POC. New orders received, will carry out and continue to monitor.
--- NOTE | 2020-05-27 09:55 | NUR ---
IV Insertion IV access obtained, via clean sterile technique by inserting 24 gauge catheter to left upper forearm. IV secured properly. No trauma to site. Patient tolerated procedure well. Will continue to monitor.
--- NOTE | 2020-05-27 10:00 | NUR ---
IV Removed IV removed with sterile technique from left forearm, catheter fully intact. Pressure dressing applied to site. Patient tolerated procedure well. Will continue to monitor Q1 hour and PRN.
[2020-05-27] MEDS ORDERED: HYDROmorphone HCL 2 MG/ML VL IV PRN (10:15)
[2020-05-27] MEDS ORDERED: HYDROcodone-ACET 5/325MG TAB PO PRN (10:15)
--- NOTE | 2020-05-27 14:16 | NUR ---
Doctor at bedside Dr. Radford discussing plan of care to patient and this RN. MD states to removed abdominal dressing and leave open to air. Will implement order, will continue to monitor.
--- NOTE | 2020-05-27 15:07 | NUR ---
Dressing removed Abdominal dressing removed. Well approximated, clean, dry and intact. Left open to air. Patient denies pain to the area. Will continue to monitor.
--- NOTE | 2020-05-27 16:54 | NUR ---
RN AMBULATED PATIENT AROUND NURSING STATION EARLIER TODAY. Addendum: 05/27/20 at 1655 by JAILYN SULTANA PTT Amended: Links added.
[2020-05-27 17:00] VITALS: BP 114/67
--- NOTE | 2020-05-27 17:55 | NUR ---
Patient ambulated This RN ambulated patient around unit, with front wheel walker. Patient tolerated well. Patient assisted back to bed, call light within reach. Will continue to monitor Q1 hour and PRN.
--- NOTE | 2020-05-27 18:10 | NUR ---
SUSAN Drain 25mls of sanguinous fluid emptied from SUSAN drain.
--- NOTE | 2020-05-27 19:21 | NUR ---
Closing note Report given to light bulb replacer RN.
[2020-05-27 21:00] VITALS: BP 138/71
[2020-05-28] MEDS: ONDANSETRON HCL 4 MG/2 ML VIAL IV PRN (00:08)
[2020-05-28] MEDS: ACCU-CHEK COMFORT CURVE STRIP VI SCH ×3 (00:46→11:27)
[2020-05-28 05:00] VITALS: BP 147/68
[2020-05-28] MEDS: InsuLIN REG 1unit/0.01ml Soln (100units/ml) SC SCH ×3 (05:43→11:27)
[2020-05-28 08:00] VITALS: BP 152/76
[2020-05-28] MEDS: cefTRIAXone 1GM/50ML D5W 50 ML IV SCH (08:29)
[2020-05-28] MEDS ORDERED: FAMOTIDINE 20 MG TAB PO SCH (10:00)
--- NOTE | 2020-05-28 10:20 | NUR ---
Physical therapy Patient with physical therapy walking around the nursing station with front wheel walker. Patient tolerating well.
--- NOTE | 2020-05-28 10:30 | NUR ---
Doctor at bedside Dr. Maurice updating plan of care with patient and this RN. New orders received will carry out and continue to monitor.
[2020-05-28] MEDS ORDERED: LACTULOSE 20Gm/30ML SOLN PO ONE (10:45)
[2020-05-28] MEDS ORDERED: DOCUSATE SOD 100 MG CAP PO ONE (10:45)
[2020-05-28 12:50] VITALS: BP 152/76
--- NOTE | 2020-05-28 15:15 | NUR ---
Discharge instructions given to patient and caregiver Marsha (niece). Educated on SUSAN drain, patient returned demonstration. Encourage to follow up with PMD as instructed. All questions and concerns addressed. Patient verbalized understanding. Medication reconciliation form completed and copy given to patient. IV removed with catheter intact, pressure dressing applied. Telemetry unit returned to ICU. Patient taken to vehicle via wheelchair with all personal belongings, accompanied by staff. No distress noted at time of departure.
== END 2020-05-28 15:15 | disposition home or self-care (01) | DRG 330 ==
LOC: SUR 06:23 → TELE-WESTW 06:24
PROVIDERS: ADMIT Surgery; ATTEND Internal Medicine
PROC: 0FB13ZX Excision of Right Lobe Liver, Percutaneous Approach, Diagnostic (ICD-10-PCS; 2020-05-22)
PROC: 0DTL0ZZ Resection of Transverse Colon, Open Approach (ICD-10-PCS; principal; 2020-05-22 07:47)
DX: C18.4 Malignant neoplasm of transverse colon (principal); N39.0 Urinary tract infection, site not specified; E44.0 Moderate protein-calorie malnutrition; C78.7 Secondary malignant neoplasm of liver and intrahepatic bile duct; E03.9 Hypothyroidism, unspecified; E78.5 Hyperlipidemia, unspecified; E11.9 Type 2 diabetes mellitus without complications; R16.0 Hepatomegaly, not elsewhere classified; Z88.2 Allergy status to sulfonamides; K81.9 Cholecystitis, unspecified; Z20.828 Contact with and (suspected) exposure to other viral communicable diseases; E78.00 Pure hypercholesterolemia, unspecified; K21.9 Gastro-esophageal reflux disease without esophagitis
CPT/HCPCS: 36415; 71045; 80048; 80053; 81001; 82962; 83036; 84443; 85025; 85610; 85730; 86850; 86900; 86901; 87086; 87426; 97116; 97530; G0378; J0330; J0696; J1815; J2001; J2250; J2405; J3490

== ENCOUNTER → 2020-07-22 | Outpatient (CLI) | payer OTHER ==
[2020-07-22 10:05] LABS: Hematocrit 35.1 % (36.0-46.0); Platelet Count (auto) 364 10^3/uL (140-450); Red Blood Cells 4.58 10^6/uL (4.0-5.20); White Blood Cell 5.5 10^3/uL (4.4-10.8)
[2020-07-22 10:06] LABS: Urine Bacteria MANY /hpf (None Seen); Urine Blood Negative /uL (Negative); Urine Hyaline Cast FEW /lpf (0 - 2); Urine Mucus FEW (None Seen); Urine Specific Gravity 1.021 (1.001-1.035); Urine WBC 96 /hpf (0 - 5)
[2020-07-22 10:16] LABS: Basophils # (auto) 0.1 10 ^3/uL (0-0.2); Basophils % (auto) 1.8 % (0.0-2.0); Eosinophils # (auto) 0.3 10 ^3/uL (0-0.8); Hemoglobin 11.3 g/dL (12.2-16.2); Lymphocytes # (auto) 1.4 10 ^3/uL (0.4-5.4); Mean Corpuscular Hemoglobin 24.7 pg (28.0-32.0); Mean Corpuscular Hgb Conc. 32.3 g/dL (32.0-36.0); Mean Corpuscular Volume 76.6 fL (80.0-100.0); Monocytes # (auto) 0.5 10 ^3/uL (0-1.3); Monocytes % (auto) 8.2 % (0.0-12.0); Neutrophils # (auto) 3.3 10 ^3/uL (1.6-8.6); Red Cell Distribution Width 18.1 % (11.8-14.3)
[2020-07-22 10:31] LABS: Albumin 3.5 g/dL (3.4-5.0); BUN/Creatinine Ratio 10.4; Potassium 3.8 mmol/L (3.5-5.1)
[2020-07-22 10:33] LABS: Bilirubin, Total 0.3 mg/dL (0.2-1.0); Total Protein 7.6 g/dL (6.4-8.2)
== END | disposition home or self-care (01) ==
LOC: LAB 09:42
PROVIDERS: ATTEND Internal Medicine
DX: C18.9 Malignant neoplasm of colon, unspecified (principal); R11.0 Nausea
CPT/HCPCS: 36415; 80053; 81001; 84439; 84443; 85025

== ENCOUNTER → 2020-08-28 | Outpatient (CLI) | payer OTHER ==
[2020-08-28 08:50] LABS: Basophils # (auto) 0.1 10 ^3/uL (0-0.2); Basophils % (auto) 1.1 % (0.0-2.0); Eosinophils # (auto) 0.3 10 ^3/uL (0-0.8); Monocytes # (auto) 0.6 10 ^3/uL (0-1.3); White Blood Cell 6.5 10^3/uL (4.4-10.8)
[2020-08-28 08:52] LABS: Eosinophils % (auto) 4.4 % (0.0-7.0); Hemoglobin 11.8 g/dL (12.2-16.2); Lymphocytes # (auto) 1.4 10 ^3/uL (0.4-5.4); Lymphocytes % (auto) 21.8 % (10.0-50.0); Mean Corpuscular Hemoglobin 25.7 pg (28.0-32.0); Mean Corpuscular Hgb Conc. 32.9 g/dL (32.0-36.0); Mean Corpuscular Volume 78.1 fL (80.0-100.0); Monocytes % (auto) 8.9 % (0.0-12.0); Neutrophils # (auto) 4.2 10 ^3/uL (1.6-8.6); Neutrophils % (auto) 63.8 % (37.0-80.0); Nucleated Red Blood Cells % 0.1 %; Platelet Count (auto) 335 10^3/uL (140-450); Red Blood Cells 4.61 10^6/uL (4.0-5.20); Red Cell Distribution Width 17.8 % (11.8-14.3)
[2020-08-28 09:32] LABS: Albumin 3.5 g/dL (3.4-5.0); Calcium 9.2 mg/dL (8.5-10.1); Potassium 3.8 mmol/L (3.5-5.1)
[2020-08-28 09:35] LABS: BUN/Creatinine Ratio 17.1; Bilirubin, Total 0.4 mg/dL (0.2-1.0); Total Protein 7.8 g/dL (6.4-8.2)
== END | disposition home or self-care (01) ==
LOC: LAB 08:32
PROVIDERS: ATTEND Internal Medicine
DX: C18.9 Malignant neoplasm of colon, unspecified (principal); E11.9 Type 2 diabetes mellitus without complications
CPT/HCPCS: 36415; 80053; 82378; 83036; 83615; 85025